=== PATIENT | female | born 1955 ===

== ENCOUNTER 2017-12-26 17:33 | Inpatient (IN) | payer MEDICARE, OTHER ==
[~2017-12-26] VITALS: Ht 172.7 cm; Wt 181.4 kg
[2017-12-26] MEDS ORDERED: FURO-151 PO (21:01)
[2017-12-26] MEDS ORDERED: ONDA4TAB5 PO (21:01)
[2017-12-26] MEDS ORDERED: METF-495 PO (21:01)
[2017-12-26] MEDS ORDERED: ESOM40CA PO (21:01)
[2017-12-26] MEDS ORDERED: ASPI81TA31 PO (21:01)
[2017-12-26] MEDS ORDERED: LORA2TAB95 PO (21:01)
[2017-12-26] MEDS ORDERED: RANO10003 PO (21:01)
[2017-12-26] MEDS ORDERED: INSU100V7 SQ (21:01)
[2017-12-26] MEDS ORDERED: PREG100C PO (21:01)
[2017-12-26] MEDS ORDERED: POTA20PA40 PO (21:01)
[2017-12-26] MEDS ORDERED: ROPI0.252 PO (21:01)
[2017-12-26] MEDS ORDERED: ESCI10TA PO (21:01)
[2017-12-26] MEDS ORDERED: FAMO-132 PO (21:01)
[2017-12-26] MEDS ORDERED: NITR0.4T48 SL (21:01)
[2017-12-26] MEDS ORDERED: CELE200C PO (21:01)
[2017-12-26] MEDS ORDERED: PRAM0.253 PO (21:01)
[2017-12-26] MEDS ORDERED: HYDR-548 PO (21:01)
[2017-12-26] MEDS ORDERED: METO25TA6 PO (21:01)
[2017-12-26] MEDS ORDERED: HYDR2TAB4 PO (21:01)
[2017-12-26] MEDS ORDERED: ISOS10TA2 PO (21:01)
[2017-12-26 21:24] VITALS: BP 163/73
[2017-12-26] MEDS ORDERED: Medication Not On Formulary EA (Lorazepam (Ativan) 2 MG) PO SCH (22:00)
[2017-12-26] MEDS ORDERED: NITROGLYCERIN 0.4 MG/TAB BOTTLE SL PRN (22:00)
[2017-12-26] MEDS ORDERED: ONDANSETRON HCL 4 MG TABLET PO PRN (22:00)
[2017-12-26] MEDS ORDERED: HYDROCODONE/APAP 10-325 MG TABLET PO PRN (22:00)
[2017-12-26] MEDS ORDERED: hydrALAZINE HCL 25 MG TABLET PO PRN (22:15)
[2017-12-26] MEDS: INSULIN GLARGINE,HUM 300 UNITS/3 ML CARTRIDGE SQ SCH (22:15)
[2017-12-26] MEDS ORDERED: INSULIN REGULAR, HUMAN 300 UNIT/3 ML VIAL SQ PRN (22:15)
[2017-12-26] MEDS ORDERED: DEXTROSE 50% 50 ML DISP.SYRIN IV PRN (22:15)
[2017-12-26] MEDS ORDERED: ONDANSETRON 4 MG/2 ML VIAL IV PRN (22:30)
[2017-12-26] MEDS ORDERED: MAGNESIUM HYDROXIDE 30 ML LIQUID UDC PO PRN ×2 (22:30)
[2017-12-26] MEDS ORDERED: ACETAMINOPHEN 325 MG TABLET PO PRN (22:30)
[2017-12-26] MEDS ORDERED: Z GUARD REMEDY PASTE 57 GM TUBE TOP PRN (22:30)
[2017-12-26] MEDS ORDERED: ZOLPIDEM 5 MG TABLET PO PRN (22:30)
[2017-12-26] MEDS ORDERED: HYDROCODONE/APAP 5-325MG TABLET PO PRN (22:30)
--- NOTE | 2017-12-26 23:01 | NUR ---
received patient from home a 62 year old female with admitting diagnosis of chronic lymphedema.aaox4 patient brought via wheelchair. Hx of DM, Arthritis, COPD, CAD Hyperlipidemia, Chronic Back pain AND Lymphedema. VSS. Lungs CTA. Bilateral lower extremities edematous. Was able to transfer from wheelchair to bed with supervision. Patient states she is diabetic, blood sugar was checked by patient prior to admission, she says its BS 123. She said she also take insulin (lantus) 30units at bedtime, and she already administered it. Patient skin has some redness on the abdominal folds, groin, under the breast and behind her knees. No open sores noted. sacral area also red, say from sitting too long in the wheelchair.Prior to admission, had a fall at home but no injury noted. Patient incontinent of bowel and bladder. Had BM at home before admission. Denies any pain at this time. Meds reconciled by Dr Ruff and Dr Dumont also aware of patient's admission. Will monitor patient. Fall precautions maintained. Siderails up for safety. Call franklin within reach.
[2017-12-26] MEDS: HYDROCODONE/APAP 5-325MG TABLET PO PRN (23:33)
[2017-12-26] MEDS: DOCUSATE SODIUM 100 MG CAPSULE PO SCH (23:33)
[2017-12-27] MEDS: HYDROCODONE/APAP 5-325MG TABLET PO PRN ×5 (03:54→21:36)
--- NOTE | 2017-12-27 05:12 | NUR ---
quiet night. pain meds given as ordered. tolerated po meds well. fall precautions maintained. siderails up for safety. call franklin within her reach.no acute distress noted.
[2017-12-27 06:00] VITALS: BP 148/62
[2017-12-27] MEDS: PANTOPRAZOLE SODIUM 40 MG TABLET.DR PO SCH (06:31)
[2017-12-27] MEDS: BLOOD SUGAR DIAGNOSTIC 1 EACH STRIP VI SCH ×4 (06:36→21:36)
[2017-12-27] MEDS ORDERED: PANTOPRAZOLE SODIUM 40 MG TABLET.DR PO SCH ×2 (07:00)
[2017-12-27 07:20] LABS: BASOPHILS % (AUTO) 0.6 % (0.0-2.0); EOSINOPHILS # (AUTO) 0.1 K/uL (0.0-0.7); EOSINOPHILS % (AUTO) 2.8 % (0.0-7.0); HEMATOCRIT 33.8 % (31.2-41.9); HEMOGLOBIN 11.2 g/dL (10.9-14.3); LYMPHOCYTES # (AUTO) 0.7 K/uL (20.0-40.0); LYMPHOCYTES % (AUTO) 13.6 % (20.5-51.5); MEAN CORPUSCULAR HEMOGLOBIN 26.4 uug (24.7-32.8); MEAN CORPUSCULAR HGB CONC 33 g/dL (32.3-35.6); MEAN CORPUSCULAR VOLUME 79.7 fL (75.5-95.3); MONOCYTES # (AUTO) 0.5 K/uL (2.0-10.0); MONOCYTES % (AUTO) 9.6 % (0.0-11.0); NEUTROPHILS # (AUTO) 3.6 K/uL (1.8-8.9); NEUTROPHILS % (AUTO) 73.4 % (38.5-71.5); PLATELET COUNT (AUTO) 169 K/uL (179-408); RED BLOOD CELL COUNT(AUTO) 4.24 MIL/uL (3.63-4.92); WHITE BLOOD COUNT (AUTO) 4.9 K/uL (3.8-11.8)
--- NOTE | 2017-12-27 07:30 | NUR ---
Pt. sleeping, no s/s distress or pain noted.
[2017-12-27 07:31] LABS: CREATININE 0.6 mg/dL (0.6-1.3); MAGNESIUM 1.4 mg/dL (1.8-2.4); PHOSPHOROUS 3.1 mg/dL (2.5-4.9); POTASSIUM 4.4 mmol/L (3.5-5.1)
[2017-12-27] MEDS: ESCITALOPRAM OXALATE 10 MG TABLET PO SCH ×2 (08:49→09:00)
[2017-12-27] MEDS: CELECOXIB 200 MG CAPSULE PO SCH (09:00)
[2017-12-27] MEDS: ASPIRIN 81 MG TAB.CHEW PO SCH (09:00)
[2017-12-27] MEDS ORDERED: PREGABALIN 100 MG CAPSULE PO SCH (09:00)
[2017-12-27] MEDS: FAMOTIDINE 20 MG TABLET PO SCH ×2 (09:00→17:39)
[2017-12-27] MEDS: METOPROLOL TARTRATE 25 MG TABLET PO SCH ×2 (09:01→17:39)
[2017-12-27] MEDS: FUROSEMIDE 40 MG TABLET PO SCH ×2 (09:01→17:38)
[2017-12-27] MEDS: POTASSIUM CHLORIDE 20 MEQ POWDER PACKET PO SCH ×2 (09:02→17:38)
[2017-12-27] MEDS: PREGABALIN 50 MG CAPSULE PO SCH ×2 (09:09→17:39)
[2017-12-27] MEDS: Z GUARD REMEDY PASTE 57 GM TUBE TOP PRN (09:26)
[2017-12-27] MEDS: RANOLAZINE 500 MG TAB.ER.12H PO SCH ×2 (09:26→21:34)
[2017-12-27] MEDS: PRAMIPEXOLE 0.25 MG TABLET PO SCH ×2 (09:26→17:00)
[2017-12-27] MEDS: ISOSORBIDE DINITRATE 10 MG TABLET PO SCH ×2 (09:26→17:37)
[2017-12-27 11:39] LABS: THYROID STIMULATING HORMONE 2.411 mIU/mL (0.358-3.740)
[2017-12-27] MEDS: HYDROMORPHONE HCL 2 MG TABLET PO PRN ×2 (12:23→19:06)
--- NOTE | 2017-12-27 13:20 | NUR ---
Pt.watching TV,no s/s of distress,denies pain @ time.
[2017-12-27] MEDS: METFORMIN HCL 500 MG TABLET PO SCH (17:39)
--- NOTE | 2017-12-27 20:41 | NUR ---
SBAR report received. Resting in bed. aaox4 feeling very depressed due to the pain she's having. Reassure the patient that pain meds she's taking will eventually help her. Needs attended. VSS. kept comfortable. Incontinent of bowel and bladder. Kept clean and dry will monitor patient.
[2017-12-27] MEDS ORDERED: DOCUSATE SODIUM 100 MG CAPSULE PO SCH ×2 (21:00)
[2017-12-27] MEDS: DOCUSATE SODIUM 100 MG CAPSULE PO SCH (21:00)
[2017-12-27 21:13] VITALS: BP 153/71
[2017-12-27] MEDS: ropiniROLE 0.25 MG TABLET PO SCH (21:34)
[2017-12-27] MEDS: INSULIN GLARGINE,HUM 300 UNITS/3 ML CARTRIDGE SQ SCH (21:38)
[2017-12-27] MEDS: ZOLPIDEM 5 MG TABLET PO PRN (22:50)
[2017-12-28] MEDS: HYDROMORPHONE HCL 2 MG TABLET PO PRN ×3 (02:33→17:13)
[2017-12-28 04:00] VITALS: BP 160/78
--- NOTE | 2017-12-28 05:44 | NUR ---
sleeping at short intervals. no acute distress noted. needs attended. tolerated po meds well. pain meds given as needed. tolerated po meds. incontinent of urine x3 kept clean and dry. No BM noted this shift. will monitor patient.
[2017-12-28] MEDS: PANTOPRAZOLE SODIUM 40 MG TABLET.DR PO SCH (06:25)
[2017-12-28] MEDS: BLOOD SUGAR DIAGNOSTIC 1 EACH STRIP VI SCH ×4 (06:31→21:23)
[2017-12-28] MEDS: HYDROCODONE/APAP 5-325MG TABLET PO PRN ×2 (06:51→14:41)
[2017-12-28] MEDS: ESCITALOPRAM OXALATE 10 MG TABLET PO SCH (08:34)
[2017-12-28] MEDS: CELECOXIB 200 MG CAPSULE PO SCH (08:34)
[2017-12-28] MEDS: FAMOTIDINE 20 MG TABLET PO SCH ×2 (08:35→17:06)
[2017-12-28] MEDS: FUROSEMIDE 40 MG TABLET PO SCH ×2 (08:35→17:00)
[2017-12-28] MEDS: ASPIRIN 81 MG TAB.CHEW PO SCH (08:35)
[2017-12-28] MEDS: METFORMIN HCL 500 MG TABLET PO SCH ×2 (08:35→17:05)
[2017-12-28] MEDS: PREGABALIN 50 MG CAPSULE PO SCH ×2 (08:36→17:06)
[2017-12-28] MEDS: METOPROLOL TARTRATE 25 MG TABLET PO SCH ×2 (08:37→17:08)
[2017-12-28] MEDS: RANOLAZINE 500 MG TAB.ER.12H PO SCH ×2 (08:37→21:15)
[2017-12-28] MEDS: PRAMIPEXOLE 0.25 MG TABLET PO SCH ×2 (08:38→17:07)
[2017-12-28] MEDS: ISOSORBIDE DINITRATE 10 MG TABLET PO SCH ×2 (08:39→17:07)
[2017-12-28] MEDS: POTASSIUM CHLORIDE 20 MEQ POWDER PACKET PO SCH ×2 (08:40→17:00)
[2017-12-28 10:33] VITALS: BP 179/79
--- NOTE | 2017-12-28 12:29 | NUR ---
WOUND CARE CONSULT: PT PRESENTS WITH RASH TO BREASTFOLDS, ABDOMINAL FOLDS AND BEHIND KNEES WELL WOUND TO LEFT THIGH, UNKNOWN ETIOLOGY, PRESENT ON ADMISSION. PT STATES THAT SHE PICKS AT HER SKIN. SCAR NOTED TO ABDOMEN FROM PICKING PER PT. ALL SKIN PROTECTION AND WOUND CARE RECOMMENDATIONS DISCUSSED WITH NURSING STAFF. WILL SEE PRN. PT REFUSED BARIATRIC BED. IN AGREEMENT WITH PLAN OF CARE. Addendum: 12/28/17 at 1231 by BRUNO RODRIGUEZ RN Amended: Links added.
--- NOTE | 2017-12-28 13:10 | NUR ---
SBAR report received this morning, board updated, Pt resting in bed. Pt assessed, no acute distress or SOB noted, Pt AOx4. Compliant with routine medication administration taking pills whole and all together at once. Pt able to make needs known, including pain medications not effective at this time, MD aware. Skin assessed by wound care nurse for consult, new orders for skin and wound care placed, and provided. Pt continues to have excessive episodes of loose stool, diarrhea, and states this has been occurring since admission. Pt teaching provided on the importance of calling promptly for toileting needs as it relates to skin integrity. Bed in locked and lowest position, with side rails upx2. All safety and comfort needs met. Call light and personal items placed within reach. Will continue to monitor.
[2017-12-28] MEDS: BACITRACIN/POLYMYXIN B OINT 15 GM TUBE TOP SCH (13:11)
[2017-12-28 16:24] VITALS: BP 149/71
[2017-12-28] MEDS: CLOTRIMAZOLE 1% CREAM 30 GM TUBE TOP SCH (17:16)
--- NOTE | 2017-12-28 18:25 | NUR ---
Pt continues to have excessive episodes of foul smelling, watery, liquid diarrhea throughout this shift. made aware. New order received to collect stool sample r/t possible dx of C Dif, Pt teaching provided. Pt refused Potassium Chloride powder supplement, and contact isolation initiated. Will continue to monitor and endorse.
[2017-12-28] MEDS: HYDROCODONE/APAP 10-325 MG TABLET PO PRN (18:57)
[2017-12-28 20:32] VITALS: BP 140/63
[2017-12-28] MEDS: DOCUSATE SODIUM 100 MG CAPSULE PO SCH (21:00)
[2017-12-28] MEDS: ropiniROLE 0.25 MG TABLET PO SCH (21:17)
[2017-12-28] MEDS: OXYCODONE HCL 10 MG TAB.SR.12H PO SCH (21:18)
[2017-12-28] MEDS: INSULIN GLARGINE,HUM 300 UNITS/3 ML CARTRIDGE SQ SCH (21:25)
[2017-12-28] MEDS: ZOLPIDEM 5 MG TABLET PO PRN (21:33)
[2017-12-29] MEDS: HYDROCODONE/APAP 10-325 MG TABLET PO PRN ×2 (03:55→10:21)
[2017-12-29 05:00] VITALS: BP 148/79
[2017-12-29] MEDS: OXYCODONE HCL 10 MG TAB.SR.12H PO SCH ×3 (06:17→22:17)
[2017-12-29] MEDS: PANTOPRAZOLE SODIUM 40 MG TABLET.DR PO SCH (06:17)
[2017-12-29] MEDS: BLOOD SUGAR DIAGNOSTIC 1 EACH STRIP VI SCH ×4 (06:39→22:16)
[2017-12-29] MEDS: POTASSIUM CHLORIDE 20 MEQ POWDER PACKET PO SCH ×2 (09:00→16:59)
[2017-12-29] MEDS: ASPIRIN 81 MG TAB.CHEW PO SCH (10:20)
[2017-12-29] MEDS: ESCITALOPRAM OXALATE 10 MG TABLET PO SCH (10:21)
[2017-12-29] MEDS: PREGABALIN 50 MG CAPSULE PO SCH ×2 (10:21→16:58)
[2017-12-29] MEDS: FUROSEMIDE 40 MG TABLET PO SCH ×2 (10:21→16:59)
[2017-12-29] MEDS: CELECOXIB 200 MG CAPSULE PO SCH (10:21)
[2017-12-29] MEDS: FAMOTIDINE 20 MG TABLET PO SCH ×2 (10:26→16:57)
[2017-12-29] MEDS: RANOLAZINE 500 MG TAB.ER.12H PO SCH ×2 (10:26→22:15)
[2017-12-29] MEDS: PRAMIPEXOLE 0.25 MG TABLET PO SCH ×2 (10:27→16:59)
[2017-12-29] MEDS: METFORMIN HCL 500 MG TABLET PO SCH ×2 (10:31→17:00)
[2017-12-29] MEDS: BACITRACIN/POLYMYXIN B OINT 15 GM TUBE TOP SCH (10:33)
[2017-12-29] MEDS: CLOTRIMAZOLE 1% CREAM 30 GM TUBE TOP SCH ×2 (10:34→17:00)
[2017-12-29] MEDS: ISOSORBIDE DINITRATE 10 MG TABLET PO SCH ×2 (10:35→16:59)
[2017-12-29] MEDS: METOPROLOL TARTRATE 25 MG TABLET PO SCH ×2 (10:36→16:58)
[2017-12-29 14:00] VITALS: BP 133/58
[2017-12-29] MEDS: LORAZEPAM 1 MG TABLET PO PRN (14:32)
--- NOTE | 2017-12-29 14:51 | NUR ---
SBAR report received this morning, board updated. Pt received sitting up in bed, resting. Pt assessed, no acute distress, Pt AOx4, and able to make needs known. Upon completing phone call from daughter, c/o labored-breathing and anxiety. 1L NC applied, and 2tabs of Ativan administered per PRN orders, which Pt states has helped resolve issue in the past. VSS. Pt compliant with routine medication administration, refusing potassium chloride powder supplement r/t suspicion of side effect causing diarrhea yesterday. Pt refused therapies today due to exhaustion from loose stools yesterday and associated frequency of diaper changes. Pt reporting pain managed to a tolerable level with today's pain medication regimen. Skin and wound care provided as ordered. Bed in locked and lowest position. Call light and personal items placed within reach. Will continue to monitor.
[2017-12-29 16:46] VITALS: BP 147/72
--- NOTE | 2017-12-29 17:44 | NUR ---
Pt reports a reduction in anxiety. VSS, O2 99%. Pt refuses Lasix at this time requesting alteration in time, preferably in morning and afternoon to avoid excessive voiding at night. MD made aware. All needs promptly attended to this shift. Will continue to monitor and endorse to on coming night nurse.
[2017-12-29 19:44] VITALS: BP 111/49
--- NOTE | 2017-12-29 20:05 | NUR ---
Patient received at bed, AAO X4. No acute distress or SOB noted. Able to makes needs known. On 1 Lit/min O2 via NC. Brief assessment done. Complain of pain at lower back rated 7/10 in numeric scale. On contact isolation due to possible C-Diff. Safety measures maintained. Bed in low position, brake and alarm on, side rails upx2. Call light and personal belongings within reach. Continue to monitor.
--- NOTE | 2017-12-29 20:55 | NUR ---
Dressing changed at Lt Thigh. Cleansed, double antibiotic applied, covered by Mepilex. Continue to monitor.
[2017-12-29] MEDS: DOCUSATE SODIUM 100 MG CAPSULE PO SCH (21:00)
[2017-12-29] MEDS: ropiniROLE 0.25 MG TABLET PO SCH (22:16)
[2017-12-29] MEDS: INSULIN GLARGINE,HUM 300 UNITS/3 ML CARTRIDGE SQ SCH (22:19)
--- NOTE | 2017-12-29 23:02 | NUR ---
INTERDISCIPLINARY TEAM CONFERENCE
[2017-12-30] MEDS: HYDROCODONE/APAP 10-325 MG TABLET PO PRN ×2 (01:10→17:20)
[2017-12-30 05:00] VITALS: BP 151/61
[2017-12-30] MEDS: OXYCODONE HCL 10 MG TAB.SR.12H PO SCH ×3 (06:08→22:04)
[2017-12-30] MEDS: PANTOPRAZOLE SODIUM 40 MG TABLET.DR PO SCH (06:08)
--- NOTE | 2017-12-30 06:20 | NUR ---
End of the shift note Patient was stable throughout the shift. No sign of acute distress or SOB noted. On room air. Pain assessed and reassessed after pain medication. Medication given as ordered. Accucheck at 2100 was 99, no coverage based on sliding scale. Dressing changed. Clotrimazole cream applied under the skin folds. Safety measures maintained. All needs attended promptly. Contact Isolation maintained. Bed brake and alarm on, side rails upx2. Call light and personal belonging within reach. Continue to monitor and will endorse to the day shift nurse.
[2017-12-30] MEDS: LORAZEPAM 1 MG TABLET PO PRN (07:51)
[2017-12-30 08:00] VITALS: BP 146/71
[2017-12-30] MEDS: CELECOXIB 200 MG CAPSULE PO SCH (08:19)
[2017-12-30] MEDS: FAMOTIDINE 20 MG TABLET PO SCH ×2 (08:19→17:03)
[2017-12-30] MEDS: FUROSEMIDE 40 MG TABLET PO SCH ×2 (08:19→17:00)
[2017-12-30] MEDS: METOPROLOL TARTRATE 25 MG TABLET PO SCH ×2 (08:19→17:04)
[2017-12-30] MEDS: PREGABALIN 50 MG CAPSULE PO SCH ×2 (08:20→17:06)
[2017-12-30] MEDS: ESCITALOPRAM OXALATE 10 MG TABLET PO SCH (08:20)
[2017-12-30] MEDS: ASPIRIN 81 MG TAB.CHEW PO SCH (08:20)
[2017-12-30] MEDS: ISOSORBIDE DINITRATE 10 MG TABLET PO SCH ×2 (08:21→17:06)
[2017-12-30] MEDS: PRAMIPEXOLE 0.25 MG TABLET PO SCH ×2 (08:22→17:07)
[2017-12-30] MEDS: CLOTRIMAZOLE 1% CREAM 30 GM TUBE TOP SCH ×2 (08:23→17:07)
[2017-12-30] MEDS: RANOLAZINE 500 MG TAB.ER.12H PO SCH ×2 (08:23→20:30)
[2017-12-30] MEDS: BACITRACIN/POLYMYXIN B OINT 15 GM TUBE TOP SCH (08:23)
[2017-12-30] MEDS: POTASSIUM CHLORIDE 20 MEQ POWDER PACKET PO SCH ×2 (08:28→17:00)
[2017-12-30] MEDS: METFORMIN HCL 500 MG TABLET PO SCH ×2 (09:28→17:03)
--- NOTE | 2017-12-30 10:42 | NUR ---
Received resident in bed with eyes open. Pt. A/OX4 with capacity to made decision and able to make needs known. Pt. denies SOB or CP at this time but felt anxious, PRN Ativan administered as ordered. All AM meds administered as ordered and tolerated well. Pt. still complaining of pain from chronic back radiating to lt. leg and knees 8/10 p.s. All pt. needs attended and met. Safety measures in place. Call light and all frequently used items within pt. reach. Will continue to monitor accordingly.
[2017-12-30 15:57] VITALS: BP 160/69
[2017-12-30] MEDS ORDERED: MAGNESIUM OXIDE 400 MG TABLET PO ONE (16:15)
--- NOTE | 2017-12-30 16:23 | NUR ---
Dr. Speedy Eduardo informed of Magnesium 1.4, ordered Magnesium Oxide [address] also informed that patient has not had BM since 12/28, Dr said july D/C isolation.
--- NOTE | 2017-12-30 18:44 | NUR ---
EOS Note: No significant change during this shift. No change in mentation. Pt. non-compliant with dietary recommendation, educated pt. risk and benefit x3. Pt. on RA and tolerating well 95%. All due medications given and tolerated well. Pt. refused KCL powder this AM, stated "It's making me have diarrhea." Pt. had 1 formed stool today, currently on contact isolation precaution for C. diff, no loose/watery BM this shift. On ASA, no s/sx of bleeding noted. BS check discontinued by MD today. Provided skin care and applied clotrimazole cream as ordered. Pt still with ongoing lower back pain radiating to LLE, PRN pain medication given as directed and was effective providing relied. Elevated BLE for edema mgt. Safety measure and fall precaution in place. Call light and all frequently used items within pt. reach. Will endorse to oncoming shift accordingly.
--- NOTE | 2017-12-30 20:05 | NUR ---
Patient received at bed, AAO X4. No acute distress or SOB noted. Able to makes needs known. On room air with O2 Sat 93%. Brief assessment done. Complain of pain at lower back rated 8/10 in numeric scale. No on contact isolation any more. Safety measures maintained. Bed in low position, brake and alarm on, side rails upx2. Call light and personal belongings within reach. Continue to monitor.
[2017-12-30 20:14] VITALS: BP 130/47
[2017-12-30] MEDS: ropiniROLE 0.25 MG TABLET PO SCH (20:32)
[2017-12-30] MEDS: DOCUSATE SODIUM 100 MG CAPSULE PO SCH (20:32)
[2017-12-30] MEDS: INSULIN GLARGINE,HUM 300 UNITS/3 ML CARTRIDGE SQ SCH (20:34)
--- NOTE | 2017-12-30 21:45 | NUR ---
Dressing changed at Lt Thigh. Cleansed, double antibiotic applied, covered by Mepilex. applied clotrimazole under the skin folds. A small skin tear on the under of Rt breast. Cleansed and covered by Mepilex, picture taken and placed in the chart. Continue to monitor.
--- NOTE | 2017-12-30 21:50 | NUR ---
Patient refused Colace cap. Risks and benefits explained. Patient demonstrate understanding. Continue to monitor.
[2017-12-31] MEDS: HYDROCODONE/APAP 10-325 MG TABLET PO PRN ×3 (02:06→17:24)
--- NOTE | 2017-12-31 03:15 | NUR ---
Patient complained of headache on her Rt side @ 0215, BP: 147/69, no other symptoms presented. Narco 10-325 mg given. Patient Rechecked was sleeping comfortably. Continue to monitor.
[2017-12-31 04:00] VITALS: BP 155/69
[2017-12-31] MEDS: PANTOPRAZOLE SODIUM 40 MG TABLET.DR PO SCH (06:03)
[2017-12-31] MEDS: OXYCODONE HCL 10 MG TAB.SR.12H PO SCH ×3 (06:04→21:11)
--- NOTE | 2017-12-31 06:52 | NUR ---
End of the shift note Patient was stable throughout the shift. No sign of acute distress or SOB noted. On room air. Pain assessed and reassessed after pain medication. Medication given as ordered. Dressing changed. Clotrimazole cream applied under the skin folds. Safety measures maintained. All needs attended promptly. Contact Isolation maintained. Bed brake and alarm on, side rails upx2. Call light and personal belonging within reach. Continue to monitor and will endorse to the day shift nurse.
[2017-12-31 07:06] LABS: BASOPHILS % (AUTO) 0.5 % (0.0-2.0); EOSINOPHILS # (AUTO) 0.3 K/uL (0.0-0.7); EOSINOPHILS % (AUTO) 5.5 % (0.0-7.0); HEMOGLOBIN 12.2 g/dL (10.9-14.3); LYMPHOCYTES # (AUTO) 0.5 K/uL (20.0-40.0); LYMPHOCYTES % (AUTO) 9.7 % (20.5-51.5); MEAN CORPUSCULAR HEMOGLOBIN 25.3 uug (24.7-32.8); MEAN CORPUSCULAR HGB CONC 31 g/dL (32.3-35.6); MEAN CORPUSCULAR VOLUME 80.6 fL (75.5-95.3); MONOCYTES # (AUTO) 0.5 K/uL (2.0-10.0); MONOCYTES % (AUTO) 9.5 % (0.0-11.0); NEUTROPHILS # (AUTO) 4.1 K/uL (1.8-8.9); NEUTROPHILS % (AUTO) 74.8 % (38.5-71.5); PLATELET COUNT (AUTO) 188 K/uL (179-408); RED BLOOD CELL COUNT(AUTO) 4.84 MIL/uL (3.63-4.92); WHITE BLOOD COUNT (AUTO) 5.5 K/uL (3.8-11.8)
[2017-12-31 07:32] LABS: BILIRUBIN,TOTAL 0.5 mg/dL (0.2-1.0); CREATININE 0.7 mg/dL (0.6-1.3); MAGNESIUM 1.5 mg/dL (1.8-2.4); PHOSPHOROUS 3.2 mg/dL (2.5-4.9); POTASSIUM 4.1 mmol/L (3.5-5.1); TOTAL PROTEIN, SERUM 6.8 g/dL (6.4-8.2)
[2017-12-31 08:00] VITALS: BP 157/70
[2017-12-31] MEDS: POTASSIUM CHLORIDE 20 MEQ POWDER PACKET PO SCH ×2 (09:00→17:00)
[2017-12-31] MEDS: FAMOTIDINE 20 MG TABLET PO SCH ×2 (09:01→17:23)
[2017-12-31] MEDS: PREGABALIN 50 MG CAPSULE PO SCH ×2 (09:01→17:23)
[2017-12-31] MEDS: CELECOXIB 200 MG CAPSULE PO SCH (09:01)
[2017-12-31] MEDS: ESCITALOPRAM OXALATE 10 MG TABLET PO SCH (09:01)
[2017-12-31] MEDS: ASPIRIN 81 MG TAB.CHEW PO SCH (09:01)
[2017-12-31] MEDS: METOPROLOL TARTRATE 25 MG TABLET PO SCH ×2 (09:03→17:24)
[2017-12-31] MEDS: RANOLAZINE 500 MG TAB.ER.12H PO SCH ×2 (09:04→20:34)
[2017-12-31] MEDS: PRAMIPEXOLE 0.25 MG TABLET PO SCH ×2 (09:04→17:25)
[2017-12-31] MEDS: ISOSORBIDE DINITRATE 10 MG TABLET PO SCH ×2 (09:04→17:25)
[2017-12-31] MEDS: BACITRACIN/POLYMYXIN B OINT 15 GM TUBE TOP SCH (09:05)
[2017-12-31] MEDS: CLOTRIMAZOLE 1% CREAM 30 GM TUBE TOP SCH ×2 (09:05→17:27)
[2017-12-31] MEDS: LORAZEPAM 1 MG TABLET PO PRN (09:06)
[2017-12-31] MEDS: FUROSEMIDE 40 MG TABLET PO SCH (09:06)
[2017-12-31] MEDS: METFORMIN HCL 500 MG TABLET PO SCH ×2 (10:19→17:23)
[2017-12-31] MEDS: ACETAMINOPHEN 325 MG TABLET PO PRN (12:17)
[2017-12-31] MEDS ORDERED: MAGNESIUM OXIDE 400 MG TABLET PO ONE (14:15)
--- NOTE | 2017-12-31 14:16 | NUR ---
Nutrition consult for "Non-compliant with diet" was received. Spoke with patient at bedside. Patient is on a consistent CHO diet. Good appetite. Patient understands the concept of carbohydrate counting, having been diabetic for several years now. HgbA1 5.9 (12/27) and BG is well-controlled at this time. Patient is on Lantus and oral hypoglycemic. Diet restrictions were explained, meal preferences were obtained and recorded, concerns were head out. Patient expressed understanding of information explained. Addendum: 12/31/17 at [address] Amended: Links added.
--- NOTE | 2017-12-31 14:39 | NUR ---
SBAR report received this morning, board updated. Pt received resting in bed, assessed, no acute distress or SOB, but reports pain and anxiety. Pt compliant with all routinely scheduled medication administration, including PRN Ativan. Pt reports relief from anxiety following medication provided and pain at a tolerable level from PRN medication plus around the clock medication. Plan of care discussed, Pt education provided on diet choices. VSS. Skin and wound care provided as ordered. Diaper changed, clean and dry. Bed in locked and lowest position, with side rails up x2. All safety and comfort measures implemented. Call light and personal items placed within reach. Will continue to monitor.
[2017-12-31 16:00] VITALS: BP 128/56
--- NOTE | 2017-12-31 20:05 | NUR ---
Patient received at bed, AAO X4. No acute distress or SOB noted. Able to makes needs known. On room air with O2 Sat 95%. Brief assessment done. Complain of pain at lower back rated 7/10 in numeric scale. Safety measures maintained. Bed in low position, brake and alarm on, side rails upx2. Call light and personal belongings within reach. Continue to monitor.
[2017-12-31 20:22] VITALS: BP_SYST 138
[2017-12-31 20:24] VITALS: BP 138/60
[2017-12-31] MEDS: DOCUSATE SODIUM 100 MG CAPSULE PO SCH (20:33)
[2017-12-31] MEDS: ropiniROLE 0.25 MG TABLET PO SCH (20:34)
[2017-12-31] MEDS: INSULIN GLARGINE,HUM 300 UNITS/3 ML CARTRIDGE SQ SCH (20:40)
--- NOTE | 2017-12-31 21:40 | NUR ---
Patient refused Colace cap. Risks and benefits explained. Patient demonstrate understanding. Continue to monitor.
--- NOTE | 2017-12-31 22:05 | NUR ---
Dressing changed at Lt Thigh. Cleansed, double antibiotic applied, covered by Mepilex. applied clotrimazole under the skin folds. A small skin tear on the under of Lt breast noted. Cleansed and covered by Mepilex, picture taken and placed in the chart. Clotrimazole applied under all skin fold including back of the knees. Continue to monitor.
[2018-01-01] MEDS: HYDROCODONE/APAP 10-325 MG TABLET PO PRN ×3 (03:41→17:02)
[2018-01-01 05:45] VITALS: BP 148/66
--- NOTE | 2018-01-01 06:02 | NUR ---
End of the shift note Patient was stable throughout the shift. No sign of acute distress or SOB noted. On room air. Pain assessed and reassessed after pain medication. Medication given as ordered. Dressing changed. Clotrimazole cream applied under the skin folds. Safety measures maintained. All needs attended promptly. Bed brake and alarm on, side rails upx2. Call light and personal belonging within reach. Continue to monitor and will endorse to the day shift nurse.
[2018-01-01] MEDS: OXYCODONE HCL 10 MG TAB.SR.12H PO SCH ×3 (06:27→21:08)
[2018-01-01] MEDS: PANTOPRAZOLE SODIUM 40 MG TABLET.DR PO SCH (06:27)
[2018-01-01] MEDS: LORAZEPAM 1 MG TABLET PO PRN ×2 (07:06→16:59)
[2018-01-01 08:00] VITALS: BP 180/75
[2018-01-01] MEDS: POTASSIUM CHLORIDE 20 MEQ POWDER PACKET PO SCH ×2 (09:00→17:00)
[2018-01-01] MEDS: RANOLAZINE 500 MG TAB.ER.12H PO SCH ×2 (09:10→20:41)
[2018-01-01] MEDS: PREGABALIN 50 MG CAPSULE PO SCH ×2 (09:11→17:00)
[2018-01-01] MEDS: ISOSORBIDE DINITRATE 10 MG TABLET PO SCH ×2 (09:11→16:59)
[2018-01-01] MEDS: PRAMIPEXOLE 0.25 MG TABLET PO SCH ×2 (09:11→16:57)
[2018-01-01] MEDS: METFORMIN HCL 500 MG TABLET PO SCH ×2 (09:11→17:00)
[2018-01-01] MEDS: ESCITALOPRAM OXALATE 10 MG TABLET PO SCH (09:12)
[2018-01-01] MEDS: FUROSEMIDE 40 MG TABLET PO SCH (09:12)
[2018-01-01] MEDS: CELECOXIB 200 MG CAPSULE PO SCH (09:12)
[2018-01-01] MEDS: FAMOTIDINE 20 MG TABLET PO SCH ×2 (09:12→17:00)
[2018-01-01] MEDS: METOPROLOL TARTRATE 25 MG TABLET PO SCH ×2 (09:12→17:00)
[2018-01-01] MEDS: ASPIRIN 81 MG TAB.CHEW PO SCH (09:12)
[2018-01-01] MEDS: BACITRACIN/POLYMYXIN B OINT 15 GM TUBE TOP SCH (09:24)
[2018-01-01] MEDS: CLOTRIMAZOLE 1% CREAM 30 GM TUBE TOP SCH ×2 (09:25→17:05)
--- NOTE | 2018-01-01 12:01 | NUR ---
WOUND CARE CONSULT: PT CONTINUES TO PRESENT WITH RASH TO BREASTFOLDS AND SKIN NOTED TO BE PEELING. RECOMMENDATIONS MADE AND DISCUSSED WITH NURSING STAFF. SKIN TO BE KEPT CLEAN AND DRY. WILL SEE PRN. IN AGREEMENT WITH PLAN OF CARE.
--- NOTE | 2018-01-01 12:27 | NUR ---
Pier Worker (Late entry for 12/29/2017): packing line worker met with patient at bedside per patient request to discuss IHSS. Patient is a 62 year old female admitted to the Acute Rehab Unit for generalized weakness. Patient reports it was her idea to come to the unit and she wants to get stronger. Patient needs assistance with her ADLs but appears determined to gain strength to walk independently. Mental Status: Patient presented alert and oriented x4 during the interview. Patient's affect was within normal limits and mood congruent. Patient was very pleasant. Patient thought process was goal oriented and linear. Patient insight and judgment appear to be intact (i.e. she is aware that she will need caregiving help once she returns home). Patient is coping well with physical therapy and participating daily. Support System: Patient is supported by her daughter, however, states that her daughter "isn't always supportive". Patient is well-connected and able to access supports if needed. Patient was able to get application for IHSS. Goals: Patient states that her goal is "walk out of here [hospital]". Interventions: packing line worker engaged in active listening. packing line worker provided emotional support and counseling. packing line worker is assisting patient in getting IHSS MD form filled out and signed. packing line worker put form in chart for doctor to fill out and sign and will continue to follow-up with MD to make sure this task is completed. Patient is aware and agreeable with plan. packing line worker will follow-up with patient on this matter. packing line worker will also provide additional information about community resources if needed. packing line worker will encourage patient to comply with ARU goals.
[2018-01-01 16:00] VITALS: BP 132/60
[2018-01-01] MEDS ORDERED: ALBUTEROL SULFATE 8 GM HFA.AER.AD IH PRN (19:45)
[2018-01-01 20:00] VITALS: BP 111/48
[2018-01-01] MEDS: DOCUSATE SODIUM 100 MG CAPSULE PO SCH (20:40)
[2018-01-01] MEDS: INSULIN GLARGINE,HUM 300 UNITS/3 ML CARTRIDGE SQ SCH (20:47)
[2018-01-01] MEDS: ZOLPIDEM 5 MG TABLET PO PRN (20:54)
--- NOTE | 2018-01-02 01:15 | NUR ---
Pt in bed resting and watching tv at the beginning of shift. AAO x4. On room air, saturating 89-91%. Got an order for O2 1.5LPM from Dr. Dumont, saturating at 93% via NC. Tolerating well. No acute distress noted. C/o pain on lower back. Routine meds including pain med given as ordered. Safety measures maintained. Call light and personal belongings within reach. Continue to monitor.
[2018-01-02] MEDS: HYDROCODONE/APAP 10-325 MG TABLET PO PRN (03:49)
[2018-01-02 04:00] VITALS: BP 145/73
[2018-01-02] MEDS: PANTOPRAZOLE SODIUM 40 MG TABLET.DR PO SCH (06:06)
[2018-01-02] MEDS: OXYCODONE HCL 10 MG TAB.SR.12H PO SCH ×3 (06:06→21:01)
[2018-01-02] MEDS: POTASSIUM CHLORIDE 20 MEQ POWDER PACKET PO SCH ×2 (09:00→17:00)
--- NOTE | 2018-01-02 09:40 | NUR ---
received report from outgoing nurse, patient in bed, bed in low position, side rails up x2, call light in reach. patient complaining of frequent urination, and refuses to take potassium liquid and prefers to have tablet.
--- NOTE | 2018-01-02 10:00 | NUR ---
patient seen by crystal Balderas requested as patients wounds in osvaldo area appear to be reddened and worsening. Crystal approved for 48 hours. Wound consult requested.
[2018-01-02] MEDS: METFORMIN HCL 500 MG TABLET PO SCH ×2 (10:23→17:09)
[2018-01-02] MEDS: ACETAMINOPHEN 325 MG TABLET PO PRN (10:23)
[2018-01-02] MEDS: FUROSEMIDE 40 MG TABLET PO SCH (10:24)
[2018-01-02] MEDS: PREGABALIN 50 MG CAPSULE PO SCH ×2 (10:24→17:09)
[2018-01-02] MEDS: ASPIRIN 81 MG TAB.CHEW PO SCH (10:24)
[2018-01-02] MEDS: PRAMIPEXOLE 0.25 MG TABLET PO SCH ×2 (10:25→17:11)
[2018-01-02] MEDS: RANOLAZINE 500 MG TAB.ER.12H PO SCH ×2 (10:26→20:56)
[2018-01-02] MEDS: ISOSORBIDE DINITRATE 10 MG TABLET PO SCH ×2 (10:26→17:11)
[2018-01-02] MEDS: CLOTRIMAZOLE 1% CREAM 30 GM TUBE TOP SCH (10:27)
[2018-01-02] MEDS: BACITRACIN/POLYMYXIN B OINT 15 GM TUBE TOP SCH (10:27)
[2018-01-02] MEDS: METOPROLOL TARTRATE 25 MG TABLET PO SCH ×2 (10:29→17:12)
[2018-01-02] MEDS ORDERED: ALBUTEROL SULFATE 8 GM HFA.AER.AD IH PRN (10:45)
[2018-01-02] MEDS: ALBUTEROL SULFATE 2.5 MG/ 0.5 ML NEBU NEB PRN ×2 (14:29→21:12)
[2018-01-02 15:51] VITALS: BP 155/63
[2018-01-02] MEDS: NYSTATIN/TRIAMCINOLONE CREAM 15 GM TUBE TOP SCH (16:54)
[2018-01-02] MEDS: NYSTATIN POWDER 15 GM BOTTLE TOP SCH (17:00)
--- NOTE | 2018-01-02 17:48 | NUR ---
patient has been cooperative with care, pain noted frequently on patients lower back. patient reports improving of skin due to rojas. Bed in low position, side rails up x2. call light in reach.
[2018-01-02 20:00] VITALS: BP 134/55
[2018-01-02] MEDS: DOCUSATE SODIUM 100 MG CAPSULE PO SCH (20:50)
[2018-01-02] MEDS: INSULIN GLARGINE,HUM 300 UNITS/3 ML CARTRIDGE SQ SCH (20:54)
[2018-01-02] MEDS: ZOLPIDEM 5 MG TABLET PO PRN (20:57)
--- NOTE | 2018-01-02 23:00 | NUR ---
Received pt resting in bed and eating. Farsi speaking, able to make needs known. No acute distress noted. No c/o pain or discomfort. Surgical site appears to be healing well. No s/s of infection. No drainage. Meds given as ordered, pt compliant. Safety measures maintained. Call light and personal belongings within reach. Will continue to monitor. Addendum: 01/02/18 at 2306 by Trini Mar RN WRONG PATIENT. PLEASE DISREGARD.
--- NOTE | 2018-01-02 23:08 | NUR ---
Pt in bed and watching TV at the beginning of shift. AAO x4. No acute distress noted in room air. Receiving breathing treatment. C/o generalized pain 10/20. Routine meds given including pain med. Bee catheter noted to be draining well with clear yellow colored urine. Safety measures maintained. Call light and personal belongings within reach. Will continue to monitor.
[2018-01-03] MEDS: HYDROCODONE/APAP 10-325 MG TABLET PO PRN ×3 (02:32→17:14)
[2018-01-03] MEDS: OXYCODONE HCL 10 MG TAB.SR.12H PO SCH ×3 (05:16→21:10)
[2018-01-03] MEDS: PANTOPRAZOLE SODIUM 40 MG TABLET.DR PO SCH (06:11)
[2018-01-03 06:35] VITALS: BP 148/71
[2018-01-03 07:10] LABS: BASOPHILS % (AUTO) 0.3 % (0.0-2.0); EOSINOPHILS # (AUTO) 0.3 K/uL (0.0-0.7); EOSINOPHILS % (AUTO) 4.8 % (0.0-7.0); HEMATOCRIT 39.4 % (31.2-41.9); HEMOGLOBIN 12.5 g/dL (10.9-14.3); LYMPHOCYTES # (AUTO) 0.7 K/uL (20.0-40.0); MEAN CORPUSCULAR HEMOGLOBIN 25.5 uug (24.7-32.8); MEAN CORPUSCULAR HGB CONC 32 g/dL (32.3-35.6); MEAN CORPUSCULAR VOLUME 80.5 fL (75.5-95.3); MONOCYTES # (AUTO) 0.6 K/uL (2.0-10.0); MONOCYTES % (AUTO) 9.6 % (0.0-11.0); NEUTROPHILS # (AUTO) 4.3 K/uL (1.8-8.9); NEUTROPHILS % (AUTO) 73.3 % (38.5-71.5); PLATELET COUNT (AUTO) 221 K/uL (179-408); WHITE BLOOD COUNT (AUTO) 5.9 K/uL (3.8-11.8)
[2018-01-03 07:25] LABS: CREATININE 0.8 mg/dL (0.6-1.3); MAGNESIUM 1.6 mg/dL (1.8-2.4); PHOSPHOROUS 3.6 mg/dL (2.5-4.9); POTASSIUM 4.2 mmol/L (3.5-5.1)
[2018-01-03 08:30] VITALS: BP 153/73
[2018-01-03] MEDS: POTASSIUM CHLORIDE 20 MEQ POWDER PACKET PO SCH (09:00)
[2018-01-03] MEDS: METFORMIN HCL 500 MG TABLET PO SCH ×2 (09:01→17:05)
[2018-01-03] MEDS: PREGABALIN 50 MG CAPSULE PO SCH ×2 (09:01→17:05)
[2018-01-03] MEDS: ASPIRIN 81 MG TAB.CHEW PO SCH (09:01)
[2018-01-03] MEDS: METOPROLOL TARTRATE 25 MG TABLET PO SCH ×2 (09:02→17:06)
[2018-01-03] MEDS: ISOSORBIDE DINITRATE 10 MG TABLET PO SCH ×2 (09:03→17:06)
[2018-01-03] MEDS: FUROSEMIDE 40 MG TABLET PO SCH (09:03)
[2018-01-03] MEDS: RANOLAZINE 500 MG TAB.ER.12H PO SCH ×2 (09:04→21:06)
[2018-01-03] MEDS: NEOMY/BACITRAC/POLYMI OINT 28.35 GM TUBE TOP SCH (09:05)
[2018-01-03] MEDS: NYSTATIN/TRIAMCINOLONE CREAM 15 GM TUBE TOP SCH ×2 (09:05→21:07)
[2018-01-03] MEDS: NYSTATIN POWDER 15 GM BOTTLE TOP SCH ×2 (09:06→21:07)
[2018-01-03] MEDS: PRAMIPEXOLE 0.25 MG TABLET PO SCH ×2 (09:07→17:05)
--- NOTE | 2018-01-03 09:23 | NUR ---
Received resident in bed with eyes open. Pt. A/OX4 able to make her needs known. Pt. denies SOB or CP. All AM medication administered as ordered and tolerated well. Pt. still complaining of pain from chronic back radiating to lt. leg and knees 8/10 p.s., PRN norco given as ordered. Skin care rendered and tolerated well. All pt. needs attended and met. Safety measures in place. Call light and all frequently used items within pt. reach. Will continue to monitor accordingly
[2018-01-03] MEDS ORDERED: MAGNESIUM CHLORIDE 64 MG TABLET.SA PO ONE (14:15)
[2018-01-03] MEDS: FLUTICASONE/VILANTEROL 1 EACH BLST.W.DEV INH SCH (15:39)
--- NOTE | 2018-01-03 15:41 | NUR ---
Social Service Note: utility worker [employer] followed up with patient about IHSS application. Per [facility], patient should call to apply rather than mail application. utility worker roller [employer] provided patient with application phone number and patient states she will call tomorrow. utility worker roller [employer] checked on status of MD portion of application and it has yet to filled out. utility worker roller shop left note on patient chart requesting application be filled out. utility worker roller shop will continue to monitor case and follow-up later this week.
[2018-01-03 16:43] VITALS: BP 128/85
--- NOTE | 2018-01-03 18:30 | NUR ---
1830 Pt. c/o acute onset of chest pain 09/19 localized non-radiating. No changes in LOC. VS: B/P: 142/62, HR: 64, RR: 22, T: 97.1 O2 Sat 89% on RA, BS: 171. O2 administered VIA NC @ 2 LPM with improvement in O2 sat: 94%, PRN NTG 0.4 mg SL given x2 with relief. Dr. Dumont on-site made aware with order for stat EKG. Orders noted and carried out. EKG reveals MD KAROLINA promptly made aware with no new order. Pt. requested Valium for anxiety, given as ordered. Will endorse to next shift accordingly.
--- NOTE | 2018-01-03 18:37 | NUR ---
EOS Note: No significant change during this shift. No change in mentation remain A/Ox. Pt. on RA and tolerating well 92%. All due medications given and tolerated well. Pt. refused KCL powder this AM, Dr. Kirstin valadez MD changed order to tab form. On ASA, no s/sx of bleeding noted. Provided skin care and applied cream as ordered. Pt with c/o chronic lower back pain radiating to LLE, PRN pain medication given as directed and was effective providing relied. Elevated BLE for edema mgt. Safety measure and fall precaution in place. Call light and all frequently used items within pt. reach. Will endorse to oncoming shift accordingly.
[2018-01-03] MEDS: DIAZEPAM 10 MG TABLET PO PRN (18:58)
[2018-01-03 20:00] VITALS: BP 123/50
--- NOTE | 2018-01-03 20:00 | NUR ---
Patient received at bed, AAO X4. No acute distress or SOB noted. Able to makes needs known. On O2 1.5 L/min via NC with O2 Sat 93%. Brief assessment done. Complain of pain at lower back rated 7/10 in numeric scale. Safety measures maintained. Bed in low position, brake and alarm on, side rails upx2. Call light and personal belongings within reach. Continue to monitor.
[2018-01-03] MEDS ORDERED: FLUTICASONE/SALMETEROL 250/50 INHALER INH SCH (21:00)
[2018-01-03] MEDS: DOCUSATE SODIUM 100 MG CAPSULE PO SCH (21:00)
--- NOTE | 2018-01-03 21:45 | NUR ---
Patient refused Colace cap. Risks and benefits explained. Patient demonstrate understanding. Continue to monitor.
[2018-01-03] MEDS: INSULIN GLARGINE,HUM 300 UNITS/3 ML CARTRIDGE SQ SCH (21:54)
[2018-01-04] MEDS: HYDROCODONE/APAP 10-325 MG TABLET PO PRN ×2 (03:46→16:21)
[2018-01-04 04:00] VITALS: BP 141/46
--- NOTE | 2018-01-04 05:23 | NUR ---
End of the shift note Patient was stable throughout the shift. No sign of acute distress or SOB noted. On O2 1.5 L/min via NC. Pain assessed and reassessed after pain medication. Bee catheter in place, draining yellow urine. Medication given as ordered. Dressing changed. Clotrimazole cream and nystatin powder applied under the skin folds and groin area. Safety measures maintained. All needs attended promptly. Bed brake and alarm on, side rails upx2. Call light and personal belonging within reach. Continue to monitor and will endorse to the day shift nurse accordingly.
[2018-01-04] MEDS: PANTOPRAZOLE SODIUM 40 MG TABLET.DR PO SCH (06:25)
[2018-01-04] MEDS: OXYCODONE HCL 10 MG TAB.SR.12H PO SCH ×3 (06:25→21:16)
[2018-01-04] MEDS: ALBUTEROL SULFATE 2.5 MG/ 0.5 ML NEBU NEB PRN ×2 (07:12→13:33)
--- NOTE | 2018-01-04 07:34 | NUR ---
Received resident in bed with eyes open. Pt. A/OX4 able to make her needs known. Pt. denies SOB or CP. Pt. still complaining of pain from chronic back radiating to lt. leg and knees 8/10 p.s., PRN norco given by previous shift, will monitor accordingly. F/C intact with clear urine output. Safety measures and fall precaution in place. CXR this AM completed. Call light and all frequently used items within pt. reach. Will continue to monitor accordingly
[2018-01-04 08:00] VITALS: BP 135/65
[2018-01-04] MEDS: FLUTICASONE/VILANTEROL 1 EACH BLST.W.DEV INH SCH (08:02)
[2018-01-04] MEDS: FUROSEMIDE 40 MG TABLET PO SCH (08:02)
[2018-01-04] MEDS: PREGABALIN 50 MG CAPSULE PO SCH ×2 (08:02→16:16)
[2018-01-04] MEDS: METFORMIN HCL 500 MG TABLET PO SCH ×2 (08:02→17:11)
[2018-01-04] MEDS: METOPROLOL TARTRATE 25 MG TABLET PO SCH ×2 (08:03→16:17)
[2018-01-04] MEDS: ASPIRIN 81 MG TAB.CHEW PO SCH (08:03)
[2018-01-04] MEDS: ISOSORBIDE DINITRATE 10 MG TABLET PO SCH ×2 (08:05→16:17)
[2018-01-04] MEDS: LOSARTAN POTASSIUM 50 MG TABLET PO SCH (08:06)
[2018-01-04] MEDS: RANOLAZINE 500 MG TAB.ER.12H PO SCH ×2 (08:06→20:04)
[2018-01-04] MEDS: PRAMIPEXOLE 0.25 MG TABLET PO SCH ×2 (08:06→16:18)
[2018-01-04] MEDS: NYSTATIN/TRIAMCINOLONE CREAM 15 GM TUBE TOP SCH ×2 (08:07→20:05)
[2018-01-04] MEDS: NYSTATIN POWDER 15 GM BOTTLE TOP SCH ×2 (08:07→20:04)
[2018-01-04] MEDS: NEOMY/BACITRAC/POLYMI OINT 28.35 GM TUBE TOP SCH (08:08)
[2018-01-04] MEDS ORDERED: POTASSIUM CHLORIDE 20 MEQ TAB.PRT.SR PO SCH (09:00)
[2018-01-04] MEDS: SPIRONOLACTONE 25 MG TABLET PO SCH (10:30)
[2018-01-04] MEDS ORDERED: FUROSEMIDE 40 MG TABLET PO ONE (14:30)
[2018-01-04 16:24] VITALS: BP 143/52
--- NOTE | 2018-01-04 18:15 | NUR ---
EOS Note: No significant change during this shift. Pt. A/OX4, able to make her needs known. Pt. on RA and tolerating well 92%. All due medications given and tolerated well. CXR scheduled for today reveals no pleural effusion or pneumothorax, with mild cardiomegaly. F/C with clear yellow urine output, remain intact. On ASA, no s/sx of bleeding noted. Provided skin care and applied cream as ordered. Elevated BLE for edema mgt, received extra dose of Furosemide from MD. Safety measure and fall precaution in place. Call light and all frequently used items within pt. reach. Will endorse to oncoming shift accordingly.
[2018-01-04] MEDS: DIAZEPAM 10 MG TABLET PO PRN (18:41)
--- NOTE | 2018-01-04 19:29 | NUR ---
Patient received at bed, AAO X4. No acute distress or SOB noted. Able to makes needs known. On O2 1.5 L/ min via NC. Brief assessment done. Complain of pain at lower back rated 6/10 in numeric scale. Bee catheter in place, draining yellow urine. Safety measures maintained. Bed in low position, brake and alarm on, side rails upx2. Call light and personal belongings within reach. Continue to monitor.
[2018-01-04 20:20] VITALS: BP 117/45
[2018-01-04] MEDS: DOCUSATE SODIUM 100 MG CAPSULE PO SCH (21:00)
[2018-01-04] MEDS: INSULIN GLARGINE,HUM 300 UNITS/3 ML CARTRIDGE SQ SCH (21:20)
--- NOTE | 2018-01-04 21:30 | NUR ---
Patient refused Colace cap. Risks and benefits explained. Patient demonstrate understanding. Continue to monitor.
--- NOTE | 2018-01-04 21:56 | NUR ---
Dressing changed at abdomen. Cleansed, double antibiotic applied, covered by bordered gauze. Applied clotrimazole under the skin folds. Clotrimazole applied under all skin fold including back of the knees. Nystatin powder applied on groin area and under lower abdominal skin fold.Continue to monitor.
--- NOTE | 2018-01-04 23:30 | NUR ---
Sleeping on initial rounds. In no apparent acute distress. On room air. Fall precautions and safety measures observed at all times. Will continue to monitor.
[2018-01-05] MEDS: DIAZEPAM 10 MG TABLET PO PRN ×3 (02:53→21:20)
[2018-01-05] MEDS: HYDROCODONE/APAP 10-325 MG TABLET PO PRN ×3 (02:54→15:43)
--- NOTE | 2018-01-05 02:55 | NUR ---
[place] and Valium PO given per request for maximum comfort and relaxation. Nursing comfort measures maintained. Encouraged to sleep more.
[2018-01-05 04:31] VITALS: BP 138/60
[2018-01-05] MEDS: OXYCODONE HCL 10 MG TAB.SR.12H PO SCH ×3 (06:09→21:22)
[2018-01-05] MEDS: PANTOPRAZOLE SODIUM 40 MG TABLET.DR PO SCH (06:09)
--- NOTE | 2018-01-05 06:30 | NUR ---
Uneventful, stable night. Able to rest/sleep. Pain under control. Enjoying reading a book. All needs attended and met. In good spirits.
[2018-01-05 08:00] VITALS: BP 148/74
[2018-01-05] MEDS: FLUTICASONE/VILANTEROL 1 EACH BLST.W.DEV INH SCH (09:18)
[2018-01-05] MEDS: ASPIRIN 81 MG TAB.CHEW PO SCH (09:19)
[2018-01-05] MEDS: METFORMIN HCL 500 MG TABLET PO SCH ×2 (09:19→17:30)
[2018-01-05] MEDS: SPIRONOLACTONE 25 MG TABLET PO SCH (09:19)
[2018-01-05] MEDS: FUROSEMIDE 40 MG TABLET PO SCH (09:20)
[2018-01-05] MEDS: LOSARTAN POTASSIUM 50 MG TABLET PO SCH (09:20)
[2018-01-05] MEDS: METOPROLOL TARTRATE 25 MG TABLET PO SCH ×2 (09:21→17:30)
[2018-01-05] MEDS: PREGABALIN 50 MG CAPSULE PO SCH ×2 (09:21→17:30)
[2018-01-05] MEDS: PRAMIPEXOLE 0.25 MG TABLET PO SCH ×2 (09:21→17:30)
[2018-01-05] MEDS: RANOLAZINE 500 MG TAB.ER.12H PO SCH ×2 (09:22→21:20)
[2018-01-05] MEDS: ISOSORBIDE DINITRATE 10 MG TABLET PO SCH ×2 (09:23→17:29)
[2018-01-05] MEDS: NEOMY/BACITRAC/POLYMI OINT 28.35 GM TUBE TOP SCH (09:24)
[2018-01-05] MEDS: NYSTATIN POWDER 15 GM BOTTLE TOP SCH ×2 (09:24→21:21)
[2018-01-05] MEDS: NYSTATIN/TRIAMCINOLONE CREAM 15 GM TUBE TOP SCH ×2 (09:24→21:21)
[2018-01-05] MEDS ORDERED: MAGNESIUM OXIDE 400 MG TABLET PO ONE (10:00)
--- NOTE | 2018-01-05 13:17 | NUR ---
INTERDISCIPLINARY TEAM CONFERENCE
[2018-01-05 15:55] VITALS: BP 150/63
--- NOTE | 2018-01-05 20:00 | NUR ---
Alert, appears in good spirits. Enjoying reading book and watching TV for diversion. Resp easy and regular on room air. In no apparent acute distress. All needs provided and met. Nursing comfort measures and fall/safety precautions observed at all times.
[2018-01-05 20:10] VITALS: BP 101/57
[2018-01-05] MEDS: DOCUSATE SODIUM 100 MG CAPSULE PO SCH (21:19)
[2018-01-05] MEDS: INSULIN GLARGINE,HUM 300 UNITS/3 ML CARTRIDGE SQ SCH (21:24)
[2018-01-05] MEDS: ZOLPIDEM 5 MG TABLET PO PRN (22:48)
[2018-01-06] MEDS: HYDROCODONE/APAP 10-325 MG TABLET PO PRN ×3 (01:35→18:03)
[2018-01-06 04:30] VITALS: BP 152/71
--- NOTE | 2018-01-06 06:00 | NUR ---
Uneventful and restful night. Able to sleep through the night. Pain relief from medications and nursing comfort measures. Fall and safety precautions enforced at all times. All pt needs attended and met. Appreciative of care.
[2018-01-06 06:12] LABS: CREATININE 0.9 mg/dL (0.6-1.3); MAGNESIUM 1.6 mg/dL (1.8-2.4); POTASSIUM 4.5 mmol/L (3.5-5.1)
[2018-01-06] MEDS: OXYCODONE HCL 10 MG TAB.SR.12H PO SCH ×3 (06:23→21:23)
[2018-01-06] MEDS: DIAZEPAM 10 MG TABLET PO PRN (06:23)
[2018-01-06] MEDS: PANTOPRAZOLE SODIUM 40 MG TABLET.DR PO SCH (06:23)
[2018-01-06] MEDS: METFORMIN HCL 500 MG TABLET PO SCH ×2 (08:58→17:56)
[2018-01-06] MEDS: ASPIRIN 81 MG TAB.CHEW PO SCH (09:00)
[2018-01-06] MEDS: PREGABALIN 50 MG CAPSULE PO SCH ×2 (09:00→17:56)
[2018-01-06] MEDS: SPIRONOLACTONE 25 MG TABLET PO SCH (09:00)
[2018-01-06] MEDS: FUROSEMIDE 40 MG TABLET PO SCH (09:00)
[2018-01-06] MEDS: FLUTICASONE/VILANTEROL 1 EACH BLST.W.DEV INH SCH (09:01)
[2018-01-06] MEDS: LOSARTAN POTASSIUM 50 MG TABLET PO SCH (09:02)
[2018-01-06] MEDS: METOPROLOL TARTRATE 25 MG TABLET PO SCH ×2 (09:03→17:57)
[2018-01-06] MEDS: ISOSORBIDE DINITRATE 10 MG TABLET PO SCH ×2 (09:04→18:03)
[2018-01-06] MEDS: RANOLAZINE 500 MG TAB.ER.12H PO SCH (09:05)
[2018-01-06] MEDS: PRAMIPEXOLE 0.25 MG TABLET PO SCH ×2 (09:05→17:56)
[2018-01-06] MEDS: NYSTATIN/TRIAMCINOLONE CREAM 15 GM TUBE TOP SCH ×2 (09:06→21:24)
[2018-01-06] MEDS: NYSTATIN POWDER 15 GM BOTTLE TOP SCH ×2 (09:06→21:23)
[2018-01-06] MEDS: NEOMY/BACITRAC/POLYMI OINT 28.35 GM TUBE TOP SCH (09:08)
--- NOTE | 2018-01-06 09:38 | NUR ---
Received an order from Dr. Fulton for Magnesium Oxide 800mg PO x 1.
[2018-01-06] MEDS ORDERED: MAGNESIUM OXIDE 400 MG TABLET PO ONE (09:45)
[2018-01-06 16:05] VITALS: BP 137/58
--- NOTE | 2018-01-06 19:40 | NUR ---
PATIENT AWAKE ON BED, PATIENT C/O LOW BACK PAIN.ASSISTED TO REPOSITION. CONTINUING ON PAIN MEDICATION ORDERED. WILL CONTINUE TO MONITOR.
[2018-01-06 20:10] VITALS: BP 122/47
[2018-01-06] MEDS: DOCUSATE SODIUM 100 MG CAPSULE PO SCH (21:00)
[2018-01-06] MEDS: INSULIN GLARGINE,HUM 300 UNITS/3 ML CARTRIDGE SQ SCH (21:30)
[2018-01-07] MEDS: HYDROCODONE/APAP 10-325 MG TABLET PO PRN ×3 (02:57→17:40)
[2018-01-07] MEDS: DIAZEPAM 10 MG TABLET PO PRN ×3 (05:01→18:34)
[2018-01-07 05:30] VITALS: BP 134/57
[2018-01-07] MEDS: OXYCODONE HCL 10 MG TAB.SR.12H PO SCH ×3 (06:05→21:02)
[2018-01-07] MEDS: PANTOPRAZOLE SODIUM 40 MG TABLET.DR PO SCH (06:06)
--- NOTE | 2018-01-07 06:51 | NUR ---
PATIENT ON AND OFF SLEEPING DURING THE SHIFT. CONTINUING ON PAIN MEDICATION ON C/O BACK AND LEG PAIN. ANTI ANXIETY MEDICATION GIVEN C/O OF ANXIETY
--- NOTE | 2018-01-07 07:30 | NUR ---
on bed, resting well. anxious about what would be missing from this breakfast tray, emotional support provided. no acute distress noted.
[2018-01-07] MEDS: METFORMIN HCL 500 MG TABLET PO SCH ×2 (08:52→17:29)
[2018-01-07] MEDS: FUROSEMIDE 40 MG TABLET PO SCH (08:53)
[2018-01-07] MEDS: PREGABALIN 50 MG CAPSULE PO SCH ×2 (08:53→17:29)
[2018-01-07] MEDS: SPIRONOLACTONE 25 MG TABLET PO SCH (08:53)
[2018-01-07] MEDS: ASPIRIN 81 MG TAB.CHEW PO SCH (08:53)
[2018-01-07] MEDS: ISOSORBIDE DINITRATE 10 MG TABLET PO SCH ×2 (08:54→17:36)
[2018-01-07] MEDS: PRAMIPEXOLE 0.25 MG TABLET PO SCH ×2 (08:54→17:29)
[2018-01-07] MEDS: LOSARTAN POTASSIUM 50 MG TABLET PO SCH (08:54)
[2018-01-07] MEDS: METOPROLOL TARTRATE 25 MG TABLET PO SCH ×2 (08:54→17:30)
[2018-01-07] MEDS: FLUTICASONE/VILANTEROL 1 EACH BLST.W.DEV INH SCH (08:55)
[2018-01-07] MEDS: NYSTATIN POWDER 15 GM BOTTLE TOP SCH ×2 (08:56→20:58)
[2018-01-07] MEDS: NYSTATIN/TRIAMCINOLONE CREAM 15 GM TUBE TOP SCH ×2 (08:56→20:59)
[2018-01-07] MEDS: NEOMY/BACITRAC/POLYMI OINT 28.35 GM TUBE TOP SCH (08:56)
[2018-01-07] MEDS: Z GUARD REMEDY PASTE 57 GM TUBE TOP PRN (08:57)
--- NOTE | 2018-01-07 09:00 | NUR ---
med x 1 for complaint of pain after exercise, back to bed per PT
[2018-01-07 10:00] VITALS: BP 145/67
--- NOTE | 2018-01-07 11:22 | NUR ---
med x 1 for complaint of anxiety, made comfortable
[2018-01-07 16:34] VITALS: BP 124/64
--- NOTE | 2018-01-07 17:50 | NUR ---
med x 1 for complaint of pain low back and both legs. frequent discussion about food with staff and dietary. made comfortable, appreciative of care. multiple calls and watching tv
--- NOTE | 2018-01-07 19:24 | NUR ---
Received pt resting in bed and watching tv. AAO x4. No acute distress noted. No c/o pain or discomfort at this time. Bee catheter, intact and draining well with clear yellow colored urine. Safety measures maintained. Call light and personal belongings within reach. Will continue to monitor.
[2018-01-07 20:00] VITALS: BP 138/84
[2018-01-07] MEDS: DOCUSATE SODIUM 100 MG CAPSULE PO SCH (21:00)
[2018-01-07] MEDS: INSULIN GLARGINE,HUM 300 UNITS/3 ML CARTRIDGE SQ SCH (21:06)
[2018-01-07] MEDS: ZOLPIDEM 5 MG TABLET PO PRN (21:22)
[2018-01-08] MEDS: HYDROCODONE/APAP 10-325 MG TABLET PO PRN ×3 (02:22→16:47)
[2018-01-08 05:00] VITALS: BP 148/77
[2018-01-08] MEDS: OXYCODONE HCL 10 MG TAB.SR.12H PO SCH ×3 (05:50→21:26)
[2018-01-08] MEDS: PANTOPRAZOLE SODIUM 40 MG TABLET.DR PO SCH (06:00)
[2018-01-08] MEDS: PRAMIPEXOLE 0.25 MG TABLET PO SCH ×2 (08:38→16:45)
[2018-01-08] MEDS: SPIRONOLACTONE 25 MG TABLET PO SCH (08:38)
[2018-01-08] MEDS: PREGABALIN 50 MG CAPSULE PO SCH ×2 (08:41→16:46)
[2018-01-08] MEDS: ASPIRIN 81 MG TAB.CHEW PO SCH (08:41)
[2018-01-08] MEDS: LOSARTAN POTASSIUM 50 MG TABLET PO SCH (08:42)
[2018-01-08] MEDS: ISOSORBIDE DINITRATE 10 MG TABLET PO SCH ×2 (08:42→16:50)
[2018-01-08] MEDS: FUROSEMIDE 40 MG TABLET PO SCH (08:42)
[2018-01-08] MEDS: METOPROLOL TARTRATE 25 MG TABLET PO SCH ×2 (08:42→16:50)
[2018-01-08] MEDS: FLUTICASONE/VILANTEROL 1 EACH BLST.W.DEV INH SCH (08:45)
[2018-01-08] MEDS: NYSTATIN/TRIAMCINOLONE CREAM 15 GM TUBE TOP SCH ×2 (08:45→21:37)
[2018-01-08] MEDS: NEOMY/BACITRAC/POLYMI OINT 28.35 GM TUBE TOP SCH (08:46)
[2018-01-08] MEDS: NYSTATIN POWDER 15 GM BOTTLE TOP SCH ×2 (08:46→21:26)
[2018-01-08] MEDS: METFORMIN HCL 500 MG TABLET PO SCH ×2 (08:55→17:22)
[2018-01-08] MEDS: ACETAMINOPHEN 325 MG TABLET PO PRN (11:10)
[2018-01-08] MEDS: DIAZEPAM 10 MG TABLET PO PRN ×2 (11:10→23:26)
[2018-01-08 11:33] VITALS: BP 169/70
--- NOTE | 2018-01-08 14:06 | NUR ---
SBAR report received, board updated. Pt resting in bed, assessed, no acute distress or SOB. Pt reports 9/10 pain at this time, PRN and scheduled pain medications administered per MD orders. Pt compliant with routine medication administration and cooperative with therapies as offered. Bee catheter care provided, intact, draining well, clean, yellow urine. Wound and skin care provided as ordered. Pt seen by MD, new order received to D/C Bee catheter tomorrow for evaluation. Bed in locked and lowest position with side rails up x2. All safety and comfort measures in place. Call light and personal items within reach. Will continue to monitor.
--- NOTE | 2018-01-08 15:59 | NUR ---
Social Service Note: fruit farmworker met with patient and provided emotional support. Patient states she is looking forward to going home on Monday. Patient has been complying with ARU goals and is happy with her progress. fruit farmworker provided patient with signed doctor's form for [employer] application and made 3 additional copies for patient's records. Patient states she has yet to call [employer] but that she is will call once discharged on Monday with her friend. fruit farmworker will continue to assist patient as needed and provide emotional support.
[2018-01-08 16:00] VITALS: BP 129/57
[2018-01-08 20:00] VITALS: BP 114/59
--- NOTE | 2018-01-08 20:05 | NUR ---
Patient received at bed, AAO X4. No acute distress or SOB noted. Able to makes needs known. On room air. Brief assessment done. Complain of pain at lower back rated 7/10 in numeric scale. Bee catheter in place, draining well, yellow urine. Safety measures maintained. Bed in low position, brake and alarm on, side rails upx2. Call light and personal belongings within reach. Continue to monitor.
[2018-01-08] MEDS: DOCUSATE SODIUM 100 MG CAPSULE PO SCH (21:00)
--- NOTE | 2018-01-08 21:30 | NUR ---
Patient refused Colace cap. Risks and benefits explained. Patient demonstrate understanding. Continue to monitor.
[2018-01-08] MEDS: INSULIN GLARGINE,HUM 300 UNITS/3 ML CARTRIDGE SQ SCH (21:39)
--- NOTE | 2018-01-08 21:40 | NUR ---
Dressing changed at abdomen. Cleansed, covered by Mepilex. Applied Mycolog II cream under all skin fold including back of the knees. Nystatin powder applied on groin area and under lower abdominal skin fold.Continue to monitor.
[2018-01-09 04:00] VITALS: BP 130/61
[2018-01-09] MEDS: OXYCODONE HCL 10 MG TAB.SR.12H PO SCH ×3 (05:57→22:57)
[2018-01-09] MEDS: PANTOPRAZOLE SODIUM 40 MG TABLET.DR PO SCH (06:00)
--- NOTE | 2018-01-09 06:19 | NUR ---
End of the shift note Patient was stable throughout the shift. No sign of acute distress or SOB noted. On O2 1.5 L/min via NC. Pain assessed and reassessed after pain medication. Bee catheter in place, draining yellow urine. Medication given as ordered. Dressing changed. Mycolog II cream and nystatin powder applied under the skin folds and groin area. Safety measures maintained. All needs attended promptly. Bed brake and alarm on, side rails upx2. Call light and personal belonging within reach. Continue to monitor and will endorse to the day shift nurse accordingly.
[2018-01-09 07:05] VITALS: BP_SYST 120; BP_SYST 148; BP_DIAS 46; BP_DIAS 63
[2018-01-09] MEDS: METFORMIN HCL 500 MG TABLET PO SCH ×2 (08:42→18:28)
[2018-01-09] MEDS: LOSARTAN POTASSIUM 50 MG TABLET PO SCH ×2 (08:42→16:32)
[2018-01-09] MEDS: FUROSEMIDE 40 MG TABLET PO SCH (08:42)
[2018-01-09] MEDS: ASPIRIN 81 MG TAB.CHEW PO SCH (08:43)
[2018-01-09] MEDS: PREGABALIN 50 MG CAPSULE PO SCH ×2 (08:43→16:33)
[2018-01-09] MEDS: FLUTICASONE/VILANTEROL 1 EACH BLST.W.DEV INH SCH (08:43)
[2018-01-09] MEDS: SPIRONOLACTONE 25 MG TABLET PO SCH (08:43)
[2018-01-09] MEDS: METOPROLOL TARTRATE 25 MG TABLET PO SCH ×2 (08:43→16:34)
[2018-01-09] MEDS: NYSTATIN POWDER 15 GM BOTTLE TOP SCH ×2 (08:44→20:48)
[2018-01-09] MEDS: ISOSORBIDE DINITRATE 10 MG TABLET PO SCH ×2 (08:44→16:34)
[2018-01-09] MEDS: PRAMIPEXOLE 0.25 MG TABLET PO SCH ×2 (08:44→16:35)
[2018-01-09] MEDS: NYSTATIN/TRIAMCINOLONE CREAM 15 GM TUBE TOP SCH ×2 (08:45→20:49)
[2018-01-09] MEDS: NEOMY/BACITRAC/POLYMI OINT 28.35 GM TUBE TOP SCH (08:46)
--- NOTE | 2018-01-09 10:30 | NUR ---
Bee catheter removed, no complications present.
--- NOTE | 2018-01-09 11:19 | NUR ---
Patient seen for diet education. Diabetes and weight loss discussed. Printed handouts and meal plans provided. Patient demonstrated understanding by asking appropriate questions. She was happy with instruction and adherence is anticipated. Will remain available as needed. Addendum: 01/09/18 at [address] Amended: Links added.
--- NOTE | 2018-01-09 12:18 | NUR ---
Received a 62 y/o female pt resting in bed. AAO x4. as a case of general weakness. No acute distress noted. No c/o pain or discomfort at this time. urinating via Bee catheter, intact and draining well with clear yellow colored urine. Safety measures maintained. Call light and personal belongings within reach. Will continue to monitor
[2018-01-09] MEDS: DIAZEPAM 10 MG TABLET PO PRN (13:24)
[2018-01-09 15:41] VITALS: BP 111/51
[2018-01-09] MEDS: HYDROCODONE/APAP 10-325 MG TABLET PO PRN (16:33)
--- NOTE | 2018-01-09 18:00 | NUR ---
Pt seen by Dr. Dumont to discuss anticipated D/C. Pt states "I have some [place] prescribed by my PCP at home". MD agreed no need for pain Rx at discharge. Will endorse decision.
--- NOTE | 2018-01-09 20:30 | NUR ---
ADMINISTRATION OF [place] 10/325MG 01/09/2018 at 2030, [place] 10/325 given to patient with c/o pain 12/20 in lower back. Patient showed facial grimacing. All needs attended to promptly. Call light within reach. Will continue to monitor.
[2018-01-09] MEDS: DOCUSATE SODIUM 100 MG CAPSULE PO SCH (20:32)
[2018-01-09] MEDS: INSULIN GLARGINE,HUM 300 UNITS/3 ML CARTRIDGE SQ SCH (20:37)
[2018-01-09 21:07] VITALS: BP 123/49
[2018-01-09] MEDS: ZOLPIDEM 5 MG TABLET PO PRN (22:57)
[2018-01-10] MEDS: HYDROCODONE/APAP 10-325 MG TABLET PO PRN ×3 (03:44→18:28)
[2018-01-10 05:17] VITALS: BP 120/55
[2018-01-10] MEDS: OXYCODONE HCL 10 MG TAB.SR.12H PO SCH ×2 (06:13→13:26)
[2018-01-10] MEDS: PANTOPRAZOLE SODIUM 40 MG TABLET.DR PO SCH (06:13)
[2018-01-10] MEDS: METFORMIN HCL 500 MG TABLET PO SCH ×2 (08:05→17:17)
[2018-01-10] MEDS: PREGABALIN 50 MG CAPSULE PO SCH ×2 (08:05→16:20)
[2018-01-10] MEDS: SPIRONOLACTONE 25 MG TABLET PO SCH (08:05)
[2018-01-10] MEDS: FUROSEMIDE 40 MG TABLET PO SCH (08:05)
[2018-01-10] MEDS: ASPIRIN 81 MG TAB.CHEW PO SCH (08:06)
[2018-01-10] MEDS: LOSARTAN POTASSIUM 50 MG TABLET PO SCH ×2 (08:06→16:21)
[2018-01-10] MEDS: METOPROLOL TARTRATE 25 MG TABLET PO SCH ×2 (08:06→16:21)
[2018-01-10] MEDS: FLUTICASONE/VILANTEROL 1 EACH BLST.W.DEV INH SCH (08:07)
[2018-01-10] MEDS: PRAMIPEXOLE 0.25 MG TABLET PO SCH ×2 (08:07→16:22)
[2018-01-10] MEDS: NEOMY/BACITRAC/POLYMI OINT 28.35 GM TUBE TOP SCH (08:08)
[2018-01-10] MEDS: NYSTATIN POWDER 15 GM BOTTLE TOP SCH (08:08)
[2018-01-10] MEDS: NYSTATIN/TRIAMCINOLONE CREAM 15 GM TUBE TOP SCH (08:09)
[2018-01-10 08:45] VITALS: BP 132/62
--- NOTE | 2018-01-10 09:34 | NUR ---
Received resident in bed with eyes open. Pt. A/OX4 able to make her needs known. Pt. denies SOB or CP. Pt c/o pain but refuse pain medication at this time. F/C d/c from previous shift, pt. voiding well with no s/s of urinary retention. Safety measures and fall precaution in place. Pt. on schedule to discharge home today. Call light and all frequently used items within pt. reach. Will continue to monitor accordingly
[2018-01-10] MEDS: DIAZEPAM 10 MG TABLET PO PRN ×2 (11:14→18:31)
--- NOTE | 2018-01-10 11:43 | NUR ---
Obtained discharge order from Dr. Dumont. Pt. to d/c home today 01/10/18 with home health to provide PT/OT/RN services. All orders noted and carried out. Pt. made aware with no further question at this time.
[2018-01-10 16:45] VITALS: BP 132/60
--- NOTE | 2018-01-10 18:24 | NUR ---
EOS Note: No significant change during this shift. No change in mentation remain A/Ox4 Pt. on RA and tolerating well 97%. All due medications given and tolerated well. Skin care rendered. Pt with c/o chronic lower back pain radiating to LLE, PRN pain medication given as directed and was effective providing relief. Safety measure and fall precaution in place. Call light and all frequently used items within pt. reach. Pt. to discharge home today, all discharge document prepared. Will endorse to oncoming shift accordingly.
--- NOTE | 2018-01-10 20:00 | NUR ---
Patient discharged from the hospital to her home at [address] via wheelchair and transportation provided by [employer]. Dr. Dumont was aware. Patient was stable at the time of discharge, AAO x4. No sign of acute distress or SOB noted. VS stable. Patient doesn't have any pressure injury. Patient took all her belongings, nothing was missing. Teaching and education given to the patient. Prescription given. She will have Follow up with [facility] ([phone]), PT, and OT.
== END 2018-01-10 19:45 | disposition home health service (06) | DRG 948 ==
PROVIDERS: ADMIT Physical Medicine & Rehabilitation Pain Medicine; ATTEND Physical Medicine & Rehabilitation Pain Medicine
DX: R53.81 Other malaise (principal); Z68.44 Body mass index [BMI] 60.0-69.9, adult; I50.42 Chronic combined systolic (congestive) and diastolic (congestive) heart failure; D68.59 Other primary thrombophilia; E44.0 Moderate protein-calorie malnutrition; I89.0 Lymphedema, not elsewhere classified; B36.9 Superficial mycosis, unspecified; E11.9 Type 2 diabetes mellitus without complications; E66.01 Morbid (severe) obesity due to excess calories; G89.29 Other chronic pain; I11.0 Hypertensive heart disease with heart failure; I25.10 Atherosclerotic heart disease of native coronary artery without angina pectoris; I35.8 Other nonrheumatic aortic valve disorders; Z90.49 Acquired absence of other specified parts of digestive tract; J44.9 Chronic obstructive pulmonary disease, unspecified; Z87.891 Personal history of nicotine dependence; E83.42 Hypomagnesemia; F41.9 Anxiety disorder, unspecified; L30.4 Erythema intertrigo; M17.10 Unilateral primary osteoarthritis, unspecified knee; M51.36 Other intervertebral disc degeneration, lumbar region; R29.6 Repeated falls; Z91.81 History of falling; K30 Functional dyspepsia; R19.7 Diarrhea, unspecified; Z88.8 Allergy status to other drugs, medicaments and biological substances
CPT/HCPCS: 36415; 71045; 83735; 84100; 84443; 85025; 92523; 92526; 92610; 93005; 93307; 94640; 94664; 97110; 97112; 97116; 97530; 97535; A4663; J1815; J8499